=== PATIENT | male | born 1995 | race Caucasian/White ===

== ENCOUNTER 2020-08-22 02:48 | Emergency (ER) | payer BC ==
[2020-08-22 03:33] VITALS: BP 116/78; PULSE 90; TEMP 98.7; BMI 38.4
== END 2020-08-22 04:42 | disposition home or self-care (01) ==
LOC: JER 02:48
DX: R05 Cough (principal); R07.9 Chest pain, unspecified; R19.7 Diarrhea, unspecified; U07.1 COVID-19
CPT/HCPCS: 99283-25

== ENCOUNTER 2021-05-04 06:34 | Emergency (ER) | payer BC ==
[2021-05-04 07:12] VITALS: BP 118/82; PULSE 90; TEMP 98.9; BMI 37.4
[2021-05-04] MEDS ORDERED: SODIUM CHLORIDE 0.9% 500 ML INFUS.BAG IV ONE (07:20)
[2021-05-04] MEDS ORDERED: METOCLOPRAMIDE HCL INJECTION 10 MG/2 ML VIAL IVPUSH ONE (07:20)
[2021-05-04] MEDS ORDERED: ACETAMINOPHEN 1000 MG/100 ML VIAL (NON FORMULARY) IVPB ONE (07:20)
[2021-05-04] MEDS ORDERED: METOCLOPRAMIDE HCL INJECTION 10 MG/2 ML VIAL IVPB ONE (07:31)
[2021-05-04] MEDS ORDERED: METOCLOPRAMIDE HCL INJECTION 10 MG/2 ML VIAL ONE (07:50)
[2021-05-04] MEDS ORDERED: ACETAMINOPHEN INJECTION 100 ML IVPB ONE (07:50)
[2021-05-04] MEDS ORDERED: IBUPROFEN 600 MG TABLET (FP) PO ONE (09:07)
[2021-05-04] MEDS ORDERED: IBUPROFEN 400 MG TABLET (FP) PO ONE (09:18)
== END 2021-05-04 09:30 ==
LOC: JER 06:34
PROC: 3E0333Z Introduction of Anti-inflammatory into Peripheral Vein, Percutaneous Approach (ICD-10-PCS; principal; 2021-05-04)
PROC: 3E033GC Introduction of Other Therapeutic Substance into Peripheral Vein, Percutaneous Approach (ICD-10-PCS; 2021-05-04)
PROC: 3E033GC Introduction of Other Therapeutic Substance into Peripheral Vein, Percutaneous Approach (ICD-10-PCS; 2021-05-04)
DX: R51.9 Headache, unspecified (principal)
CPT/HCPCS: 70450-TC; 96374; 96375; 99284-25; C9803; J0131; U0003; U0005

== ENCOUNTER 2021-05-09 07:36 | Emergency (ER) | payer BC ==
[2021-05-09 08:10] VITALS: BP 123/85; PULSE 76; TEMP 98; BMI 36.9
[2021-05-09] MEDS ORDERED: SODIUM CHLORIDE 1,000 ML IV STA (08:28)
[2021-05-09] MEDS ORDERED: METOCLOPRAMIDE HCL INJECTION 10 MG/2 ML VIAL IVPB ONE (08:28)
[2021-05-09] MEDS ORDERED: KETOROLAC TROMETHAMINE 30 MG/1 ML VIAL IVPUSH ONE (08:28)
[2021-05-09] MEDS ORDERED: KETOROLAC TROMETHAMINE 30 MG/1 ML VIAL ONE (08:52)
[2021-05-09] MEDS ORDERED: METOCLOPRAMIDE HCL INJECTION 10 MG/2 ML VIAL ONE (08:52)
== END 2021-05-09 10:58 | disposition home or self-care (01) ==
LOC: JER 07:36
PROC: 3E033GC Introduction of Other Therapeutic Substance into Peripheral Vein, Percutaneous Approach (ICD-10-PCS; principal; 2021-05-09)
PROC: 3E0333Z Introduction of Anti-inflammatory into Peripheral Vein, Percutaneous Approach (ICD-10-PCS; 2021-05-09)
PROC: 3E033GC Introduction of Other Therapeutic Substance into Peripheral Vein, Percutaneous Approach (ICD-10-PCS; 2021-05-09)
PROC: 3E0337Z Introduction of Electrolytic and Water Balance Substance into Peripheral Vein, Percutaneous Approach (ICD-10-PCS; 2021-05-09)
DX: G44.019 Episodic cluster headache, not intractable (principal)
CPT/HCPCS: 96361; 96374; 96375; 99284-25

== ENCOUNTER 2021-07-20 11:28 | Emergency (ER) | payer BC ==
[2021-07-20 11:46] VITALS: BP 123/79; PULSE 86; TEMP 99; BMI 36.9
== END 2021-07-20 12:53 | disposition home or self-care (01) ==
LOC: JER 11:28
DX: L50.0 Allergic urticaria (principal); R21 Rash and other nonspecific skin eruption
CPT/HCPCS: 87070; 99283-25